=== PATIENT | female | born 1960 | race Caucasian/White ===

== ENCOUNTER 2021-05-01 17:21 | Observation (INO) | payer OTHER ==
[~2021-05-01] VITALS: Ht 157.5 cm; Wt 129.3 kg
--- NOTE | 2021-05-01 18:50 | PHYS DOC ---
Past History Past Medical History: COPD, Diabetes, Hypertension, Hypothyroid, OK Past Medical History Pituitary tumor but-status post removal, hypocortisol Past Surgical History: Other Past Surgical History Gastric band- wt. reduction Alcohol Use: None Drug Use: None General Adult EDM: Chief Complaint: CONSTIPATION HPI: HPI: ".. I been so sick.. nausea.. Maybe I am constipated.. I drank to bottle of Mag . citrate and used Dulcolax suppository.. and had some stool.. but still very distended.. I just been so terribly fatigued the last 4 days... And just so very nauseated... Could even take my prednisone... For my hypocortisol .... I had a pituitary tumor and they removed it and I have to take prednisone 5 daily and 10 when I am sick ... But I am so nauseated I could not take it I usually go to [place]... but I just had my boys drop me off here... and go ahead with [place] .. 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 Patient has tried home remedies of 2 bottles of mag citrate and Dulcolax suppository. With minimal results. Patient denies any intake of bad food. Has had minimal intake because of nausea. Patient has had previous colonoscopic evaluation in July of this year is found to have 2 polyps. Has a follow-up scheduled colonoscopy in July again for reevaluation post polypectomy in July. Patient does have a history of pituitary tumor which was removed intranasally approach. Since that time she has required prednisone 5 mg a day maintenance and 10 mg when she is sick. Patient has been unable to take any steroids in the past 24 to 48 hours because of the nausea. Patient denies any travel. No specific ill contacts. Did not get flu vaccination but has had Covid Moderna with booster x3. Patient has not had upper EGD evaluation. Immunosuppression secondary to her chronic steroid use. Patient has past medical history of hypertension, diabetes, OK, COPD, hypothyroidism and cortisol deficient. Pt. had cath at [facility]- >5 yrs ago for OK, vessels were clear on cath. Pt. had fx. shoulder and Lt. elbow., Patient patient normally follows with Review of Systems: Review of Systems: Constitutional: Denies fever or chills Eyes: Denies change in visual acuity HENT: Denies nasal congestion or sore throat Respiratory: Denies cough or shortness of breath Cardiovascular: Denies chest pain or edema GI: Complains of generalized abdominal pain, nausea, and constipation. Vomiting, bloody stools or diarrhea : Denies dysuria Musculoskeletal: Denies back pain or joint pain Integument: Denies rash Neurologic: Denies headache, focal weakness or sensory changes Endocrine: Denies polyuria or polydipsia Lymphatic: Denies swollen glands Psychiatric: Denies depression or anxiety Family History: Family History: Noncontributory to presentation. Current Medications: Current Meds: See nursing for home meds Allergies: Allergies: Allergies Coded Allergies Type Severity Reaction Last Updated Verified No Known Drug Allergies 07/01/15 No Physical Exam: PE: Constitutional moderate acute distress, non-toxic appearance. [] HENT: Normocephalic, atraumatic, bilateral external ears normal, oropharynx dry, no oral exudates, nose normal. Old surgery scar. Eyes: PERRLA, EOMI, conjunctiva normal, no discharge. [] Neck: Normal range of motion, no tenderness, supple, no stridor. [] Cardiovascular: Tachycardia heart rate regular rhythm, no murmur [] Lungs & Thorax: Bilateral breath sounds equal apex with scattered wheezes auscultation [] Abdomen: Bowel sounds hyperactive, soft, generalized tenderness, no masses, no pulsatile masses. Tympanic distention. Rectal exam does have a few hard stools balls. No active bleeding. No mass. Old surgery scar. Port for Gastric band. Skin: Warm, dry, no erythema, no rash. Poor turgor Back: No tenderness, no CVA tenderness. [] Extremities: No tenderness, no cyanosis, no clubbing, ROM intact, no edema. Arthritic changes. Moves all extremities as directed. Neurologic: Alert and oriented X 3, n moves all extremities on request, does have distal sensory, no focal deficits noted. [] Psychologic: Affect anxious judgement normal, mood normal. [] EKG: EKG: My interpretation of EKG shows a sinus rhythm at 87 bpm. Has LVH. No findings of acute STEMI of contralateral changes. Time of EKG is 2002 hrs. [] Radiology/Procedures: Radiology/Procedures: [[address] [address] IMAGING REPORT Signed PATIENT: LENKA ZUNIGAUNT: [id number] : 1960 LOCATION: [address] [place] [address] AGE: 60 SEX: F EXAM STATUS: ADM IN ORD. PHYSICIAN: SUZIE GLEZ MD REASON: pain PROCEDURE: ACUTE ABDOMEN SERIES XR ABDOMEN COMP ACUTE History: Pain Comparison: CT abdomen and pelvis 05/01/2021. Technique: Frontal chest with upright and supine radiographs of the abdomen and pelvis. Findings: Chest: Left upper lobe approximately 1.8 cm nodule in the lateral lung. Bowel gas pattern: Nonspecific, nonobstructive with a relative paucity of bowel gas. Free air: None. Abnormal calcifications: Multiple pelvic calcifications likely phleboliths versus ureterolith. Bones: Degenerative changes of the spine and hips. Right eighth rib fracture not seen to advantage on this exam. Other: Laparoscopic adjustable gastric band in expected position. Impression: 1. Left upper lobe 1.8 cm nodule appears relatively dense likely represents granuloma. Recommend CT of the chest for further evaluation. 2. Nonspecific bowel gas pattern with paucity of bowel gas. 3. Multiple pelvic calcifications likely represent phleboliths. Cannot exclude distal nephrolithiasis. Electronically signed by: Johnny Zuniga MD (05/01/2021 11:43 PM) [facility] DICTATED AND SIGNED BY: JOHNNY ZUNIGA MD DATE: 05/01/21 2331 CC: SUZIE GLEZ MD; TANYA GRANADOS MD; JOESPH ELIZABETH MD ~[facility] 0 ][address] [address] IMAGING REPORT Signed PATIENT: LENKA ZUNIGACOUNT: [id number] : 1960 LOCATION: ER AGE: 60 SEX: F EXAM STATUS: REG ER ORD. PHYSICIAN: SUZIE GLEZ MD REASON: OMNI 300,75ML IV.Pain, n/v, no stool several days PROCEDURE: CT ABD PELV W/ORAL&IV CONTRAST INDICATION: Reason: OMNI 300,75ML IV.Pain, n/v, no stool several days / Spl. Instructions: / History: COMPARISON: None. TECHNIQUE: Axial CT images were obtained through the abdomen and pelvis with intravenous contrast. One or more of the following individualized dose reduction techniques were utilized for this examination: 1. Automated exposure control; 2. Adjustment of the mA and/or kV according to patient size; 3. Use of iterative reconstruction technique. FINDINGS: Distention of the distal esophagus with thickening of the wall. Gastric band. Vascular: Severe atherosclerotic disease. Hepatobiliary: Liver is low density which can be seen with fatty infiltration. Liver is enlarged. Pancreas: No peripancreatic edema. Spleen: Spleen unremarkable. Renal/Bladder: There is a couple low-density left renal lesions measuring up to about 10 mm, not well characterized. No left-sided hydronephrosis. Urinary bladder partially distended. There is some distention of the right ureter with adjacent edema to the fat with a couple of calcifications seen near expected location of the right ureter. A couple of these calcifications are likely adjacent to the ureter but there is one more distally measuring approximately 2 mm which could be within the ureter. Gastrointestinal: Colonic diverticulosis. No periappendiceal inflammatory changes. No dilated loops of bowel to suggest obstruction. Degenerative changes the spine with multilevel central canal and neural foraminal stenosis. Fracture of right seventh rib with mild displacement Degenerative changes the bilateral hips. IMPRESSION: * Distention of the distal esophagus with some thickening of the wall. Would correlate with symptoms to ensure this is not pathologic from causes such as esophagitis. * Indeterminate low-density left renal lesions. It may be helpful to obtain a nonemergent ultrasound, CT or MRI renal protocol to better assess. Could be solid or complex cystic. * Distention of the right ureter with adjacent edema to the fat. There are several calcifications near the expected location of the right ureter. A couple of these are likely secondary to calcifications within the adjacent vein but one of them may be at the distal ureter given the location. Would also correlate with symptoms of infection to ensure that there is not a urinary tract infection contributing to this appearance. Follow-up could be obtained to ensure that this fullness of the right ureter and adjacent edema appropriately resolves to exclude a right ureter lesion. * Acute appearing right rib fracture. Electronically signed by: Karolina Lazo MD (05/01/2021 11:32 PM) DESKTOP-U [id number] DICTATED AND SIGNED BY: KAROLINA LAZO MD DATE: 05/01/212315 CC: SUZIE GLEZ MD; JOESPH ELIZABETH MD ~MTH0 0 Heart Score: C/O Chest Pain: No HEART Score for Chest Pain: HEART Score for Chest Pain Response (Comments) Value History Moderately Suspicious 1 ECG Nonspecific Repolarizatio 1 Age >45 - < 65 1 Risk Factors 1 or 2 Risk Factors 1 Troponin >3 x Normal Limit 2 Total 6 Risk Factors: Risk Factors: DM, Current or recent (<one month) smoker, HTN, HLP, family history of CAD, obesity. Risk Scores: Score 0 - 3: 2.5% MACE over next 6 weeks - Discharge Home Score 4 - 6: 20.3% MACE over next 6 weeks - Admit for Clinical Observation Score 7 - 10: 72.7% MACE over next 6 weeks - Early Invasive Strategies Course & Med Decision Making: Course & Med Decision Making Pertinent Labs and Imaging studies reviewed. (See chart for details) Discussed presentation, testing and tx. plan with Dr. Granados- advised admit to Tele, repeat EKG, Trop. and Rocephin for UTI. Impression: 1. Abdomen pain 2. Urinary tract infection 3. Severe nausea 4. Fatigue 5. Elevated Trop.= 78.4- OK 6. DM= glucose 271 7. UTI- > 40 WBC 8. Hx. pituitary tumor status post surgery 9. History of hypocortisol- requires daily steroids 10.HTN 11. Pulmonary Nodule 1.8 cm Lt upper lobe [] Dragon Disclaimer: Dragon Disclaimer: This electronic medical record was generated, in whole or in part, using a voice recognition dictation system. Departure Departure: Referrals: JOESPH ELIZABETH MD (PCP) [place] Disclaimer This chart was dictated in whole or in part using Voice Recognition software in a busy, high-work load, and often noisy Emergency Department environment. It may contain unintended and wholly unrecognized errors or omissions. SUZIE GLEZ MD May 01, 2021 18:50
[2021-05-01] MEDS ORDERED: BISACODYL 10 MG SUPP.RECT ONE (18:57)
[2021-05-01] MEDS ORDERED: GLYCERIN ADULT 1 SUPP.RECT. ONE (18:57)
[2021-05-01] MEDS ORDERED: COSYNTROPIN 0.25 MG IVP ONE (19:15)
[2021-05-01] MEDS ORDERED: KETOROLAC 30 MG/ML VIAL. IVP ONE (19:15)
[2021-05-01] MEDS ORDERED: BISACODYL 10 MG SUPP.RECT PR ONE (19:15)
[2021-05-01] MEDS ORDERED: FAMOTIDINE 20 MG/2 ML VIAL IVP ONE (19:15)
[2021-05-01] MEDS ORDERED: GLYCERIN ADULT 1 SUPP.RECT. PR ONE (19:15)
[2021-05-01] MEDS ORDERED: methylPREDNISolone SOD SUCC PF 125 MG/2 ML VIAL. IV ONE (19:15)
[2021-05-01] MEDS ORDERED: ONDANSETRON PF 4 MG/2 ML VIAL. IVP ONE (19:15)
[2021-05-01] MEDS ORDERED: IV RINGERS SOLUTION,LACTATED 1,000 ML IV SCH (19:15)
[2021-05-01 20:25] LABS: AMPHETAMINE/METHAMPHETAMINE NEG (NEG); BARBITURATES NEG (NEG); BENZODIAZEPINES POS (NEG); CANNABINOIDS NEG (NEG); COCAINE NEG (NEG); METHADONE NEG (NEG); OPIATES NEG (NEG); PHENCYCLIDINE NEG (NEG)
[2021-05-01 20:27] LABS: BACTERIA,URINE MOD /HPF (0-FEW); BILIRUBIN,URINE NEG (NEG); CLARITY,URINE HAZY; COLOR,URINE YELLOW; GLUCOSE,URINE NEG (NEG); NITRITE,URINE NEG (NEG); SQUAMOUS EPITHELIAL CELL,UR FEW /LPF; UROBILINOGEN,URINE 0.2 mg/dL (0.2 mg/dL); WBC,URINE >40 /HPF (0-4)
[2021-05-01] MEDS ORDERED: cefTRIAXone IM 1 GM VIAL IM ONE (20:45)
[2021-05-01] MEDS ORDERED: CONTRAST GIVEN. MC PRN (21:15)
[2021-05-01] MEDS ORDERED: IOHEXOL 300 MG/ML 75 ML VIAL. IV ONE (21:15)
--- NOTE | 2021-05-01 21:46 | NUR ---
pt refused ABG
[2021-05-01 21:49] LABS: BASO # 0.1 x10^3/uL (0.0-0.2); BASO % 1 % (0-3); EOS # 0.3 x10^3/uL (0.0-0.7); EOS % 3 % (0-3); HEMATOCRIT 40.6 % (36.0-47.0); HEMOGLOBIN 13.5 g/dL (12.0-15.5); LYMPH # 1.1 x10^3/uL (1.0-4.8); LYMPH % 11 % (24-48); MEAN CORPUSCULAR HEMOGLOBIN 29 pg (25-35); MEAN CORPUSCULAR HGB CONC 33 g/dL (31-37); MEAN CORPUSCULAR VOLUME 89 fL (79-100); MONO # 0.3 x10^3/uL (0.0-1.1); MONO % 3 % (0-9); NEUT % 82 % (31-73); PLATELET COUNT 285 x10^3/uL (140-400); RED BLOOD COUNT 4.58 x10^6/uL (3.50-5.40); RED CELL DISTRIBUTION WIDTH 14.3 % (11.5-14.5); WHITE BLOOD COUNT 9.8 x10^3/uL (4.0-11.0)
[2021-05-01 22:02] LABS: CALCIUM 8.4 mg/dL (8.5-10.1); CREATININE 1.1 mg/dL (0.6-1.0); GFR 50.5; POTASSIUM 4.8 mmol/L (3.5-5.1)
[2021-05-01 22:18] LABS: DIRECT BILIRUBIN 0.2 mg/dL (0.0-0.2); TOTAL BILIRUBIN 0.7 mg/dL (0.2-1.0); TOTAL PROTEIN 7.6 g/dL (6.4-8.2)
[2021-05-01] MEDS ORDERED: NITROGLYCERIN OINT 1 GM PACKET. TP ONE (23:15)
[2021-05-01] MEDS ORDERED: ASPIRIN 325 MG TABLET PO ONE (23:15)
[2021-05-01] MEDS ORDERED: ENOXAPARIN ** NOTE DOSE ** SYRINGE SQ ONE (23:15)
[2021-05-01] MEDS ORDERED: MORPHINE SULFATE 4 MG/ML DISP.SYRIN. IVP PRN (23:30)
[2021-05-01] MEDS ORDERED: ONDANSETRON PF 4 MG/2 ML VIAL. IVP PRN (23:30)
[2021-05-01] MEDS ORDERED: ACETAMINOPHEN 325 MG TABLET PO PRN (23:30)
--- NOTE | 2021-05-01 23:35 | RAD ---
INDICATION: Reason: OMNI 300,75ML IV.Pain, n/v, no stool several days / Spl. Instructions: / Histor y: COMPARISON: None. TECHNIQUE: Axial CT images were obtained through the abdomen and pelvis with intravenous contrast. One or more of the following individualized dose reduction techniques were utilized for this examinat ion: 1. Automated exposure control; 2. Adjustment of the mA and/or kV according to patient size; 3 . Use of iterative reconstruction technique. FINDINGS: Distention of the distal esophagus with thickening of the wall. Gastric band. Vascular: Severe atherosclerotic disease. Hepatobiliary: Liver is low density which can be seen with fatty infiltration. Liver is enlarged. Pancreas: No peripancreatic edema. Spleen: Spleen unremarkable. Renal/Bladder: There is a couple low-density left renal lesions measuring up to about 10 mm, not well characterized. No left-sided hydronephrosis. Urinary bladder partially distended. There is some dist ention of the right ureter with adjacent edema to the fat with a couple of calcifications seen near e xpected location of the right ureter. A couple of these calcifications are likely adjacent to the ure ter but there is one more distally measuring approximately 2 mm which could be within the ureter. Gastrointestinal: Colonic diverticulosis. No periappendiceal inflammatory changes. No dilated loops o f bowel to suggest obstruction. Degenerative changes the spine with multilevel central canal and neural foraminal stenosis. Fracture of right seventh rib with mild displacement Degenerative changes the bilateral hips. IMPRESSION: * Distention of the distal esophagus with some thickening of the wall. Would correlate with symptom s to ensure this is not pathologic from causes such as esophagitis. * Indeterminate low-density left renal lesions. It may be helpful to obtain a nonemergent ultrasound , CT or MRI renal protocol to better assess. Could be solid or complex cystic. * Distention of the right ureter with adjacent edema to the fat. There are several calcifications ne ar the expected location of the right ureter. A couple of these are likely secondary to calcification s within the adjacent vein but one of them may be at the distal ureter given the location. Would also correlate with symptoms of infection to ensure that there is not a urinary tract infection contribut ing to this appearance. Follow-up could be obtained to ensure that this fullness of the right ureter and adjacent edema appropriately resolves to exclude a right ureter lesion. * Acute appearing right rib fracture. Electronically signed by: Clarence Lazo MD (05/01/2021 11:32 PM) [id number]
--- NOTE | 2021-05-01 23:45 | RAD ---
XR ABDOMEN COMP ACUTE History: Pain Comparison: CT abdomen and pelvis 05/01/2021. Technique: Frontal chest with upright and supine radiographs of the abdomen and pelvis. Findings: Chest: Left upper lobe approximately 1.8 cm nodule in the lateral lung. Bowel gas pattern: Nonspecific, nonobstructive with a relative paucity of bowel gas. Free air: None. Abnormal calcifications: Multiple pelvic calcifications likely phleboliths versus ureterolith. Bones: Degenerative changes of the spine and hips. Right eighth rib fracture not seen to advantage on this exam. Other: Laparoscopic adjustable gastric band in expected position. Impression: 1. Left upper lobe 1.8 cm nodule appears relatively dense likely represents granuloma. Recommend CT of the chest for further evaluation. 2. Nonspecific bowel gas pattern with paucity of bowel gas. 3. Multiple pelvic calcifications likely represent phleboliths. Cannot exclude distal nephrolithiasi s. Electronically signed by: Johnny Bowen MD (05/01/2021 11:43 PM) [facility]
--- NOTE | 2021-05-02 00:20 | NUR ---
The patient, LENKA ZUNIGA, 60 y/o, F admitted by TANYA GRANADOS MD, was given written information regarding hospital policies, unit procedures and contact persons. Valuables were checked and left with patient.
[2021-05-02 00:54] VITALS: BP 143/74
[2021-05-02] MEDS: IV RINGERS SOLUTION,LACTATED 1,000 ML IV SCH ×3 (02:08→16:24)
[2021-05-02] MEDS ORDERED: PRED-220 PO (04:51)
[2021-05-02] MEDS ORDERED: LACT1CAP6 PO (04:51)
[2021-05-02] MEDS ORDERED: ALBU2.5V8 IH (04:51)
[2021-05-02] MEDS ORDERED: ACET325T9 PO (04:51)
[2021-05-02] MEDS ORDERED: NIFE30TA15 PO (04:51)
[2021-05-02] MEDS ORDERED: INSU100C SQ (04:51)
[2021-05-02] MEDS ORDERED: LEVO175T5 PO (04:51)
[2021-05-02] MEDS ORDERED: INSU100V13 SQ (04:51)
[2021-05-02] MEDS ORDERED: LISI20TA18 PO (04:51)
[2021-05-02] MEDS ORDERED: FLUT1DIS3 IH (04:51)
[2021-05-02] MEDS ORDERED: ASPI-889 PO (04:51)
[2021-05-02] MEDS ORDERED: PSYL0.5215 PO (04:51)
[2021-05-02] MEDS ORDERED: VITA25006 PO (04:51)
[2021-05-02] MEDS ORDERED: GLIP10TA24 PO (04:51)
[2021-05-02] MEDS ORDERED: ALPR1TAB2 PO (04:51)
[2021-05-02] MEDS ORDERED: SITA50TA PO (04:51)
[2021-05-02 05:55] VITALS: BP 122/71
--- NOTE | 2021-05-02 06:29 | EKG ---
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
--- NOTE | 2021-05-02 07:00 | EKG ---
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
[2021-05-02 07:03] LABS: BASO % 0 % (0-3); EOS % 0 % (0-3); HEMATOCRIT 42.2 % (36.0-47.0); HEMOGLOBIN 13.8 g/dL (12.0-15.5); LYMPH # 0.7 x10^3/uL (1.0-4.8); LYMPH % 7 % (24-48); MEAN CORPUSCULAR HEMOGLOBIN 29 pg (25-35); MEAN CORPUSCULAR HGB CONC 33 g/dL (31-37); MEAN CORPUSCULAR VOLUME 90 fL (79-100); MONO # 0.1 x10^3/uL (0.0-1.1); MONO % 1 % (0-9); NEUT # 9.3 x10^3uL (1.8-7.7); NEUT % 92 % (31-73); PLATELET COUNT 306 x10^3/uL (140-400); RED CELL DISTRIBUTION WIDTH 14.3 % (11.5-14.5); WHITE BLOOD COUNT 10.2 x10^3/uL (4.0-11.0)
[2021-05-02 07:17] LABS: CALCIUM 8.3 mg/dL (8.5-10.1); CREATININE 1.3 mg/dL (0.6-1.0); GFR 41.6
[2021-05-02 07:23] LABS: POTASSIUM 6.6 mmol/L (3.5-5.1)
[2021-05-02] MEDS ORDERED: SODIUM BICARB ADULT 8.4% 50 MEQ/50 ML DISP.SYRIN. IV ONE (07:30)
[2021-05-02] MEDS ORDERED: INSULIN REGULAR 100 UNIT/ML 3ML VIAL. IV ONE (07:45)
[2021-05-02] MEDS ORDERED: INSULIN REGULAR 100 UNIT/ML 3ML VIAL. SQ ONE (08:00)
[2021-05-02] MEDS ORDERED: ASPIRIN CHEWABLE 81 MG TABLET. PO SCH (08:00)
--- NOTE | 2021-05-02 08:14 | EKG ---
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
[2021-05-02] MEDS ORDERED: COSYNTROPIN 0.25 MG IVP ONE (08:30)
[2021-05-02] MEDS ORDERED: ENOXAPARIN ** NOTE DOSE ** SYRINGE SQ ONE (09:00)
[2021-05-02] MEDS ORDERED: NITROGLYCERIN OINT 1 GM PACKET. TP ONE (09:00)
[2021-05-02] MEDS ORDERED: ACETAMINOPHEN 325 MG TABLET PO PRN (09:15)
[2021-05-02] MEDS ORDERED: predniSONE 10 MG TABLET. PO ONE ×2 (09:15→10:00)
[2021-05-02 09:30] LABS: CALCIUM 8.1 mg/dL (8.5-10.1); CREATININE 1.4 mg/dL (0.6-1.0); GFR 38.2; POTASSIUM 5.7 mmol/L (3.5-5.1)
[2021-05-02] MEDS: FAMOTIDINE 20 MG/2 ML VIAL IVP SCH ×2 (09:31→20:50)
--- NOTE | 2021-05-02 09:43 | HP ---
DATE OF SERVICE: 05/02/2021 ADMIT DATE: 05/01/2021 ATTENDING PHYSICIAN: Dr. Sanders. CHIEF COMPLAINT: Abdominal pain. HISTORY OF PRESENT ILLNESS: The patient is a 60-year-old female with multiple medical issues. She has a doctor in [place]. She moved here. She has no local physician. She was admitted through our ED. She had abdominal pain. She has not felt well. She has adrenal insufficiency due to removal of her pituitary gland. She had a recent colonoscopy. She has been vaccinated against COVID. There are no COVID symptoms. Because impending adrenal insufficiency, she got a stress dose of Solu-Medrol in the ED of 125 mg IV by the ER doc. Her sugar shot up to over 500. She is a little bit hyperkalemic from acidosis. She is admitted then for further treatment and evaluation. She also has a UTI. Cultures are pending. She received 1 gram of Rocephin in the ED. PAST MEDICAL HISTORY: Significant for COPD, morbid obesity, type 2 diabetes, hypertension and panhypopituitarism. PAST SURGICAL HISTORY: In 2018, she had a transsphenoidal resection of her pituitary gland at [facility]. CURRENT MEDICATIONS: Reviewed. She was on scheduled prednisone 5 mg daily; Tylenol; albuterol; Xanax; aspirin; fluticasone; glipizide; insulin, Levemir and regular; lactobacillus; Synthroid; lisinopril; nifedipine; prednisone; psyllium; Januvia; and vitamin D. SOCIAL HISTORY: She is a nonsmoker, nondrinker. She is retired. REVIEW OF SYSTEMS: Significant for the generalized abdominal pain, some constipation. No fevers or chills. All other systems reviewed and turned out to be negative. She was concerned about a slight rise with a new sensitivity fourth generation troponin level. She had a negative cardiac workup in the past several years ago. PHYSICAL EXAMINATION: GENERAL: When I saw her, this is an obese female in no acute distress. VITAL SIGNS: Her initial vital signs showed a blood pressure of 122/71, pulse is 80 and regular. She is afebrile. Oxygen saturation 92% on room air. HEENT: Head is without trauma. Pupils are reactive. Sclerae nonicteric. The oropharynx is clear. NECK: Supple, no bruits identified. LUNGS: Clear to auscultation. CARDIOVASCULAR SYSTEM: Showed regular heart tones. No gallops. ABDOMEN: Soft. EXTREMITIES: Without edema. NEUROLOGIC: Function focally intact. Speech is fluent. PERTINENT LABORATORY STUDIES: The CT of the abdomen and pelvis showed some nonspecific changes of the ureter consistent with a UTI. No obstruction identified. Her hemoglobin on admission was 13.5 g/dL with a white count of 9800. Electrolytes this morning showed a potassium of 6.6 mEq, sodium is down to 128, nonfasting blood sugar 510 mg/dL. The cardiac enzymes showed a troponin of 78 and 81, she is asymptomatic; I suspect this is stress demand ischemia. ASSESSMENT: 1. A 60-year-old female with abdominal pain. She was given a dose of Solu-Medrol due to her panhypopituitarism, it raised her sugar significantly. 2. Insulin-dependent diabetes. 3. Panhypopituitarism. 4. History of transsphenoidal resection of pituitary tumor. 5. Obesity. 6. Slight elevation of cardiac enzymes due to stress demand ischemia. 7. Asymptomatic hyperkalemia. PLAN: 1. Admit to the inpatient unit. 2. Insulin has been ordered. 3. Continue Rocephin for UTI. 4. Serial chemistries and recheck chemistries in the morning. 5. Sodium bicarbonate for potassium. 6. Small dose of prednisone today, 10 mg p.o. 7. Continue other home meds. OUMOU/PARIS/DARINEL DR: OUMOU/katya TID: [id number]
[2021-05-02] MEDS ORDERED: INSULIN GLARGINE SYRINGE. SQ ONE (10:00)
[2021-05-02 10:28] VITALS: BP 164/69
[2021-05-02] MEDS ORDERED: NON FORMULARY ITEM (Insulin Lispro (Humalog) 100 UNIT) SQ SCH (11:30)
--- NOTE | 2021-05-02 11:40 | NUR ---
Nursing note Got report on PT this morning and was called for a critical result on the PT and results on glucose levels and potassium level was called to the doctor and was ordered to give insulin and sodium bicarbonate. Documented the critical results in the patients chat and also told the nursing avionics supervisor about the results. Gave medications to the PT and the PT was seen by the doctor. Morning assessments done, PT ate breakfast and blood sugar was still elevated and the doctor said it might be because the PT was given an extra dosage of prednisone in the ER which might cause the blood glucose to be elevated. PT verbalized no dizziness or light headed, she stated her blood sugar is usually elevated. Vitals within normal range for the PT, bed low, call light within reach. Will continue to monitor.
[2021-05-02] MEDS ORDERED: INSULIN LISPRO 300 UNITS/3 ML VIAL. SQ SCH ×2 (12:00→17:15)
[2021-05-02] MEDS: INSULIN LISPRO 300 UNITS/3 ML VIAL. SQ SCH ×2 (12:15→16:58)
[2021-05-02] MEDS: ALPRAZolam 0.5 MG TABLET PO SCH ×2 (14:22→20:51)
[2021-05-02] MEDS: LINAGLIPTIN 5 MG TABLET PO SCH (14:22)
[2021-05-02] MEDS: ALBUTEROL SULFATE 2.5 MG/3 ML NEBU. NEB SCH ×2 (15:13→19:42)
[2021-05-02 15:30] VITALS: BP 167/92
--- NOTE | 2021-05-02 15:37 | NUR ---
Nursing notes PT in bed, stated she is not happy all her home medications were not started on their regular schedule. The reason why some of the medication where not started was explained to the PT by the nurse and the nursing lower in supervisor. The PT continued to insist she wanted some of her medications started, and the nursing lower in supervisor had to start some of the medications. PT verbalized she is not happy her medications where started late and she is scared to eat because it may elevate her blood glucose. PT was told she should ate some food because she is taking medications, so as to avoid any adverse effects. Bed low, call light within reach, fluids infusing. PT verbalized she wants a packet of pink sugar, some peppers and salt. All where given to PT and the PT was told she is on blood pressure medications and needs to monitor what she eats. PT was told to avoid any foods that may elevate her blood glucose. PT verbalized no other needs. Will continue to monitor.
[2021-05-02 19:20] VITALS: BP 138/75
[2021-05-02] MEDS: BUDESONIDE 0.5 MG/2 ML NEBU NEB SCH (19:42)
[2021-05-02] MEDS: LACTOBACILLUS RHAMNOSUS GG 1 CAPSULE. PO SCH (20:51)
[2021-05-02] MEDS ORDERED: PSYLLIUM SEED (WITH SUGAR) PACKET. PO SCH (21:00)
[2021-05-02] MEDS ORDERED: INSULIN GLARGINE SYRINGE. SQ SCH (21:00)
[2021-05-02] MEDS ORDERED: NON FORMULARY ITEM (Fluticasone/Salmeterol (Advair 250-50 Diskus) 1 PUFF) IH SCH (21:00)
[2021-05-02 23:31] VITALS: BP 146/71
[2021-05-03] MEDS: IV RINGERS SOLUTION,LACTATED 1,000 ML IV SCH ×3 (00:14→06:45)
[2021-05-03 05:59] VITALS: BP 143/74
[2021-05-03] MEDS ORDERED: LEVOTHYROXINE 175 MCG TABLET PO SCH (06:00)
[2021-05-03 07:41] VITALS: BP 143/74
[2021-05-03] MEDS: LACTOBACILLUS RHAMNOSUS GG 1 CAPSULE. PO SCH (07:41)
[2021-05-03] MEDS: LINAGLIPTIN 5 MG TABLET PO SCH (07:41)
[2021-05-03] MEDS: ALPRAZolam 0.5 MG TABLET PO SCH (07:41)
[2021-05-03] MEDS: FAMOTIDINE 20 MG/2 ML VIAL IVP SCH (07:42)
[2021-05-03] MEDS: ALBUTEROL SULFATE 2.5 MG/3 ML NEBU. NEB SCH (07:44)
[2021-05-03] MEDS: BUDESONIDE 0.5 MG/2 ML NEBU NEB SCH (07:44)
[2021-05-03] MEDS ORDERED: INSULIN LISPRO 300 UNITS/3 ML VIAL. SQ SCH (08:00)
--- NOTE | 2021-05-03 08:15 | DS ---
DATE OF DISCHARGE: 05/03/2021 ATTENDING PHYSICIAN: Dr. Sanders. FINAL DISCHARGE DIAGNOSES: 1. A 60-year-old female with abdominal pain, most likely adrenal insufficiency. 2. Insulin-dependent diabetes. 3. Hyperglycemia due to supraphysiologic dose of steroids given in the ER. 4. Panhypopituitarism. 5. History of transsphenoidal resection of pituitary tumor. 6. Morbid obesity. 7. Slight elevation of cardiac enzymes due to stress demand ischemia. 8. Asymptomatic hyperkalemia, resolving. HISTORY AND PHYSICAL: The patient is a 60-year-old female from [place], admitted through our ED in [place], [place] with symptoms of adrenal insufficiency. She has panhypopituitarism. She has had some abdominal pain due to constipation. She received a stress dose of Solu-Medrol, raising her blood sugar. She was admitted to the hospital for management of sugars and continuation of her steroids. She also had evidence of a urinary tract infection. PHYSICAL EXAMINATION: Please see my dictated note. PERTINENT LABORATORY AND X-RAY STUDIES: A urine culture done in the ED is still pending at this time. Blood sugars were drawn. It was down to 330 on the second hospital day. Admission blood sugar was 536. Potassium was 6.2, repeat was down to 5.7. Sodium 125 mEq. This is adjusted for hyperglycemia. It is actually within normal range. Creatinine is 1.4 mg/dL. Serology negative for coronavirus. Hemoglobin is 13.5 grams with a white count of 9800. COURSE IN THE HOSPITAL: The patient was admitted. She was started on empiric antibiotics. She had a slight elevation of cardiac enzymes on her 4th generation super sensitive troponin level. She had no pain, no EKG or rhythm issues. I believe this is stress demand ischemia. She has had a Cardiology workup about 5 years ago. She did not want to stay in the hospital for Cardiology evaluation. I felt it was stable for her to go home. She did receive 2 days of IV antibiotics. I do not have the culture report from the ED just yet because of the holiday weekend. She did well. She remained afebrile. By the second hospital day, sugars were improving. Electrolytes were stable and she was ready for discharge. At this time, she did receive 2 full days of intravenous Rocephin. I recommended 7 more days of cephalexin 500 mg p.o. t.i.d. No change in her home meds. She will continue her prednisone 5 mg b.i.d. Her blood pressure is quite stable today. She will continue her Xanax p.r.n., albuterol, aspirin daily, glipizide, regular and Lantus insulin, lactobacillus, Synthroid, lisinopril 20 mg daily, nifedipine, prednisone was noted, psyllium, Januvia, and vitamin D. She is a FULL CODE per advanced directive. She was discharged from our hospital in stable condition with explicit drug and followup care. OUMOU/ABY DR: OUMOU/katya TID: [id number] CC: Josiah Baltazar MD
[2021-05-03] MEDS ORDERED: ASPIRIN ENTERIC COATED 81 MG TABLET.DR. PO SCH (09:00)
[2021-05-03] MEDS ORDERED: FOLIC ACID PO SCH (09:00)
[2021-05-03] MEDS ORDERED: predniSONE 10 MG TABLET. PO SCH (09:00)
[2021-05-03] MEDS ORDERED: VITAMIN D3 PO SCH (09:00)
[2021-05-03] MEDS ORDERED: CHOLECALCIFEROL (VITAMIN D3) 1,000 UNIT TABLET PO SCH (09:00)
[2021-05-03] MEDS ORDERED: predniSONE 5 MG TABLET PO SCH (09:00)
[2021-05-03] MEDS ORDERED: FOLIC ACID 1 MG TABLET PO SCH (09:00)
--- NOTE | 2021-05-03 09:49 | NUR ---
PT IS DISCHARGED HOME WITH SELF CARE. PT IS STABLE AT TIME OF DISCHARGE. IV IS DC'D AND TELE MONITOR REMOVED. PT IS GIVEN ALL DISCHARGE AND FOLLOW UP INSTRUCTIONS. PT IS ESCORTED OFF OF UNIT ACCOMPANIED BY STAFF.
== END 2021-05-03 09:50 | disposition home or self-care (01) ==
LOC: ER 17:21 → INTOOBSV 23:19 → 1 SOUTH 23:19
PROVIDERS: ADMIT Hospitalist; ATTEND Hospitalist
DX: R10.9 Unspecified abdominal pain (principal); Z20.822 Contact with and (suspected) exposure to COVID-19; E11.65 Type 2 diabetes mellitus with hyperglycemia; S22.31XA Fracture of one rib, right side, initial encounter for closed fracture; I10 Essential (primary) hypertension; E23.0 Hypopituitarism; E87.5 Hyperkalemia; E66.9 Obesity, unspecified; R77.8 Other specified abnormalities of plasma proteins; J44.9 Chronic obstructive pulmonary disease, unspecified; D49.7 Neoplasm of unspecified behavior of endocrine glands and other parts of nervous system; E66.01 Morbid (severe) obesity due to excess calories; K59.00 Constipation, unspecified; N39.0 Urinary tract infection, site not specified; R53.83 Other fatigue; R11.0 Nausea; R91.1 Solitary pulmonary nodule; Z79.899 Other long term (current) drug therapy; Z68.43 Body mass index [BMI] 50.0-59.9, adult; Z98.890 Other specified postprocedural states; X58.XXXA Exposure to other specified factors, initial encounter; Y92.89 Other specified places as the place of occurrence of the external cause; Y93.89 Activity, other specified; Y99.8 Other external cause status
CPT/HCPCS: 36415; 74022; 74177; 80048; 80076; 80307; 81001; 82150; 82533; 82553; 82947; 83690; 84443; 84484; 85025; 85610; 85730; 87077; 87086; 87186; 87426; 93005; 94640; 96365; 96372; 96375; 96376; 99285; G0378; J0696; J1650; J1815; J1885; J2405; J2930; J3490; J7120; J7512; J7613; Q9967; U0003; 96361; 96374; G0379